=== PATIENT | female | born 1960 | race Caucasian/White ===

== ENCOUNTER → 2019-01-10 | Outpatient (CLI) | payer OTHER ==
--- NOTE | 2019-01-10 14:12 | XR ---
EXAMINATION TYPE: XR foot complete RT DATE OF EXAM: 01/10/2019 CLINICAL HISTORY: pain TECHNIQUE: Frontal, lateral and oblique images of the right foot are obtained. COMPARISON: None. FINDINGS: There is no acute fracture/dislocation evident. The joint spaces appear within normal johnson its. The overlying soft tissue appears unremarkable. IMPRESSION: There is no acute fracture or dislocation. ICD 10 NO FRACTURE, INITIAL EVALUATION
== END | disposition home or self-care (01) ==
LOC: RADXRMAIN 13:09
PROVIDERS: ATTEND Family Medicine
DX: M79.671 Pain in right foot (principal)

== ENCOUNTER → 2019-05-11 | Outpatient (CLI) | payer OTHER ==
--- NOTE | 2019-05-11 14:19 | MR ---
EXAMINATION TYPE: MR shoulder LT wo con DATE OF EXAM: 05/11/2019 COMPARISON: None HISTORY: Left shoulder pain TECHNIQUE: Multiplanar, multisequence imaging of the left shoulder is performed without contrast. FINDINGS: Rotator Cuff: There is a full-thickness tear of the supraspinatus with only a few diminutive fibers r emaining and retraction of the tendon approximately 3.2 cm. Blood products are seen within the acromi ohumeral interval. Mild atrophy is seen of the supraspinatus. Articular surface tear of the infraspinatus is seen measuring 1.0 x 0.8 cm that is partial thickness at the myotendinous junction. Intrasubstance tear measuring 5 mm. Moderate tendinopathy is seen as al teration in signal of the distal insertional fibers. The teres minor is unremarkable in signal and volume. The subscapularis there is undulation of the subscapularis tendon although no discrete tear is seen a xial imaging is limited by patient motion and tear suspected. Acromioclavicular Joint: Moderate acromioclavicular arthropathy is seen with downsloping of the acrom ion creating internal impingement of the myotendinous junction of the supraspinatus. Acromioclavicula r arthropathy is seen as capsular hypertrophy and small marginal ossified. Glenohumeral Joint: Mild joint space narrowing is seen and cephalad displacement of the humeral head related to the rotator cuff tear. Subchondral cysts are also seen of the humeral head. Labrum: There is at least tear of the superior anterior labrum and posterior labrum diffusely with po or visualization of the anterior inferior labrum. Biceps Tendon: The long head of the biceps is located outside of the occipital groove, hit in lesion deep to the subscapularis with heterogeneity at its insertion on the glenoid labrum and split tear no palak. Dislocation is seen as described above with blood products in the bicipital groove and fluid. Bone marrow signal: No focal abnormal marrow signal is appreciated. Other: Small amount of fluid in the subcoracoid bursa. IMPRESSION: 1. Full-thickness tear of the supraspinatus with blood products in the bicipital groove. Mild suprasp inatus atrophy is also seen. 2. Multifocal partial-thickness tears of the infraspinatus measuring 1.0 x 0.8 cm at the articular rollins rface and intrasubstance tear measuring 5 mm. 3. Undulation of the supraspinatus suspicious for tear although the location of tear is not definitiv flor seen given patient motion. The biceps is also dislocated seen deep to the supraspinatus (hidden l esion) with blood products in the bicipital groove. 4. Multifocal tearing of the glenoid labrum as detailed above. 5. Moderate acromio clavicular arthropathy and downsloping of the acromion creating internal impingem ent of the myotendinous junction.
== END | disposition home or self-care (01) ==
LOC: RADMRIMAIN 12:34
PROVIDERS: ATTEND Family Medicine
DX: M75.122 Complete rotator cuff tear or rupture of left shoulder, not specified as traumatic (principal); M12.9 Arthropathy, unspecified

== ENCOUNTER 2020-08-20 13:26 | Emergency (ER) | payer OTHER ==
[2020-08-20 13:59] VITALS: BP 159/108; PULSE 81; RESP 18; TEMP 98.1
--- NOTE | 2020-08-20 14:09 | ED ---
General Adult HPI - General Chief complaint: Extremity Problem,Nontraumatic Stated complaint: L Elbow Pain Time Seen by Provider: 08/20/20 14:02 Source: patient Mode of arrival: ambulatory Limitations: no limitations - History of Present Illness Initial comments: Patient is 60-year-old female presenting to the emergency room with chief complaint of left elbow pain. Patient reports pain started over the last few days. Patient states she bumped it several times throughout the last few days. States she also possibly hated during the night while she was sleeping on the counter next to her bed. She denies any erythema or swelling but states it is quite tender to touch near the olecranon. She reports full range of motion otherwise. Denies any alleviate or aggravate factors. Denies any night sweats residuals. She is not diabetic. She does report taking ibuprofen no significant improvement symptoms. She denies any numbness or tingling. - Related Data Allergies Allergy/AdvReac Type Severity Reaction Status Date / Time amoxicillin Allergy Swelling Verified 08/20/20 13:57 cefaclor [From Ceclor] Allergy Nausea & Verified 08/20/20 13:57 Vomiting & Diarrhea chlorhexidine Allergy Rash/Hives Verified 08/20/20 13:58 latex Allergy Unknown Verified 08/20/20 13:57 nickel Allergy Rash/Hives Verified 08/20/20 13:57 Review of Systems ROS Statement: Those systems with pertinent positive or pertinent negative responses have been documented in the HPI. ROS Other: All systems not noted in ROS Statement are negative. General Exam Limitations: no limitations General appearance: alert, in no apparent distress, obese Head exam: Present: atraumatic, normocephalic, normal inspection Eye exam: Present: normal appearance, PERRL, EOMI Pupils: Present: normal accommodation ENT exam: Present: normal exam, normal oropharynx, mucous membranes moist Neck exam: Present: normal inspection, full ROM. Absent: tenderness Respiratory exam: Present: normal lung sounds bilaterally. Absent: respiratory distress, wheezes, rales Cardiovascular Exam: Present: regular rate, normal rhythm, normal heart sounds Extremities exam: Present: normal inspection (No swelling or erythema at the left elbow), full ROM, tenderness (Tenderness to the olecranon), normal capillary refill, pedal edema, calf tenderness, other (+2 ulnar radial pulses bilaterally.) Back exam: Present: normal inspection, full ROM. Absent: tenderness, CVA tenderness (R), CVA tenderness (L) Neurological exam: Present: alert, oriented X3, CN II-XII intact, normal gait Psychiatric exam: Present: normal affect, normal mood Skin exam: Present: warm, dry, intact, normal color Course Vital Signs 08/20/20 13:54 Temperature 98.1 F Pulse Rate 81 Respiratory 18 Rate Blood Pressure 159/108 O2 Sat by Pulse 99 Oximetry Medical Decision Making - Medical Decision Making Patient is a 60-year-old female presenting to the emergency department with a chief complaint of left elbow pain. On physical examination, patient does not have any swelling or erythema in the region. Some tenderness to the left olecranon. No signs of tenderness or golfer's elbow. Prabhakar wrap was applied. Patient was advised to alternate between Tylenol and Motrin for pain control. Strict return parameters were thoroughly discussed the patient was under sitting ago. Case discussed with physician. Disposition Clinical Impression: Left elbow pain, Injury of left elbow Disposition: HOME SELF-CARE Condition: Stable Instructions (If sedation given, give patient instructions): Elbow Sprain (ED) Additional Instructions: Follow-up with your primary care physician. Alternate between Tylenol and Motrin for pain control. Apply ice compress. Return to emergency department if symptoms worsen. Is patient prescribed a controlled substance at d/c from ED?: No Referrals: George Smith DO [Primary Care Provider] - 1-2 days Time of Disposition: 14:41
--- NOTE | 2020-08-20 14:23 | XR ---
EXAMINATION TYPE: XR elbow complete LT DATE OF EXAM: 08/20/2020 CLINICAL HISTORY: Elbow pain for one day. No injury. TECHNIQUE: Frontal, lateral and oblique images of the left elbow are obtained. COMPARISON: None FINDINGS: There is no acute fracture/dislocation evident in the left elbow. No abnormal fat pad sig ns are seen. The overlying soft tissue appears unremarkable. IMPRESSION: There is no acute fracture or dislocation in the left elbow.
[2020-08-20] MEDS ORDERED: ACET/COD 300 MG/30 MG STARTER PACK 6 TAB BTL PO STA (14:45)
== END 2020-08-20 14:52 | disposition home or self-care (01) ==
LOC: EC 13:26
DX: S59.902A Unspecified injury of left elbow, initial encounter (principal); Z88.0 Allergy status to penicillin; Z88.1 Allergy status to other antibiotic agents; Z91.040 Latex allergy status; Z91.048 Other nonmedicinal substance allergy status; Z88.3 Allergy status to other anti-infective agents; X58.XXXA Exposure to other specified factors, initial encounter
CPT/HCPCS: 99283

== ENCOUNTER 2020-12-19 14:46 | Emergency (ER) | payer OTHER ==
[2020-12-19 14:57] VITALS: RESP 18
[2020-12-19] MEDS ORDERED: LIDOCAINE 1% INJ 10MG/ML (20 ML MDV) SQ ONE (15:18)
--- NOTE | 2020-12-19 15:18 | ED ---
Animal Bite HPI - General Chief Complaint: Animal Bite Stated Complaint: Dog bite Time Seen by Provider: 12/19/20 14:59 Source: patient Mode of arrival: ambulatory Limitations: no limitations - History of Present Illness Initial Comments: 60-year-old female presents to the emergency department with a chief complaint of a dog bite. Patient reports this occurred about one hour prior to arrival. States this was her dog and it is fully vaccinated. States the dog bit her on the right finger and then she pulled it out quickly. Patient reports a lacera tion to the right fourth digit. patient denies any fevers or chills. She reports the pain is an 8 and is throbbing in nature. Her tetanus is up-to-date. She reports full range of motion in the finger but it is painful due to the laceration. - Related Data Previous Rx's Medication Instructions Recorded Doxycycline Monohydrate [Monodox] 100 mg PO Q12HR #20 cap 12/19/20 Doxycycline Monohydrate [Monodox] 100 mg PO Q12HR #20 cap 12/19/20 Fluconazole [Diflucan] 150 mg PO ONCE #2 tab 12/19/20 Sulfamethox-Tmp 800-160Mg [Bactrim 1 each PO Q12HR #20 tab 12/19/20 Ds] Allergies Allergy/AdvReac Type Severity Reaction Status Date / Time amoxicillin Allergy Swelling Verified 08/20/20 13:57 cefaclor [From Ceclor] Allergy Nausea & Verified 08/20/20 13:57 Vomiting & Diarrhea chlorhexidine Allergy Rash/Hives Verified 08/20/20 13:58 latex Allergy Unknown Verified 08/20/20 13:57 nickel Allergy Rash/Hives Verified 08/20/20 13:57 Review of Systems ROS Statement: Those systems with pertinent positive or pertinent negative responses have been documented in the HPI. ROS Other: All systems not noted in ROS Statement are negative. Past Medical History Past Medical History: No Reported History History of Any Multi-Drug Resistant Organisms: None Reported Past Surgical History: No Surgical Hx Reported Smoking Status: Former smoker Past Alcohol Use History: None Reported Past Drug Use History: None Reported General Exam Limitations: no limitations General appearance: alert, in no apparent distress Head exam: Present: atraumatic, normocephalic, normal inspection Eye exam: Present: normal appearance, PERRL, EOMI Pupils: Present: normal accommodation ENT exam: Present: normal exam, normal oropharynx, mucous membranes moist Neck exam: Present: normal inspection, full ROM. Absent: tenderness Respiratory exam: Present: normal lung sounds bilaterally. Absent: respiratory distress Cardiovascular Exam: Present: regular rate, normal rhythm, normal heart sounds Extremities exam: Present: full ROM, tenderness (tenderness at the laceration site), normal capillary refill, other (palpable ulnar and radial pulses bilaterally.). Absent: normal inspection (laceration to her right fourth di git.no signs of foreign body at the laceration site), pedal edema, joint swelling, calf tenderness Back exam: Present: normal inspection, full ROM. Absent: tenderness, CVA te nderness (R), CVA tenderness (L) Neurological exam: Present: alert, oriented X3, normal gait Psychiatric exam: Present: normal affect, normal mood Skin exam: Present: warm, dry, intact, normal color Course Vital Signs 12/19/20 12/19/20 12/19/20 14:55 16:42 17:44 Temperature 98.4 F 98.3 F 98 F Pulse Rate 77 82 64 Respiratory 18 18 18 Rate Blood Pressure 164/109 125/102 166/100 O2 Sat by Pulse 97 98 100 Oximetry Procedures - Laceration Laceration #1 Consent Obtained: verbal consent Indication: laceration Site: other (right fourth digit) Description: flap, irregular, clean Depth: simple, single layer Sedation/Analgesia: none Anesthetic Used: lidocaine 1% Anesthesia Technique: nerve block Amount (mls): 5 Pre-repair: irrigated extensively, deep structures intact Type of Sutures: nylon Size of Sutures: 4-0 Number of Sutures: 5 Technique: simple, interrupted Patient Tolerated Procedure: well, no complications - Nerve Block Consent Obtained: verbal consent Local Anesthetic Used: Lidocaine 1% Amount of anesthesia used: 5 Side: right Nerve Blocks: digital Procedure Successful: Yes Complications: none Patient Tolerated Procedure: well, no complications - Orthopedic Splinting/Casting Injury #1 Side: right Upper Extremity Injury Location: finger Upper Extremity Immobilizer: finger (other) Medical Decision Making - Medical Decision Making 60-year-old male presents emergency Department with chief complaint of a dog bite. On physical examination, the patient has a laceration to the right fourth digit. There is no signs of a foreign body. she is otherwise no neurovascularly intact. X-ray reveals a nondisplaced tuft fracture. There is a possible foreign body in the skin. However, this does not clinically correlate. Laceration site and finger were thoroughly irrigated. Laceration site was loosely close together after a digital block was performed which patient tolerated well. Finger splint applied. She was offered IV antibiotics, she declined. Patient preferred orals. She is ALLERGIC to Augmentin so was started on doxycycline and bactrim instead. she will follow-up with an help desk specialist. Patient was given Norcofor symptomatically relief here bili discharged with Tylenol 3 starter pack and Diflucan because she tends to get vaginal candidiasis secondary to antibiotic. Return parameters discussed the patient was understanding and agreeable. Case discussed with Dr. Weaver. . Disposition Clinical Impression: Dog bite, Bite by animal, Finger fracture Disposition: HOME SELF-CARE Condition: Stable Instructions (If sedation given, give patient instructions): Animal Bite (ED) Additional Instructions: Take medication as directed. Follow-up with help desk specialist. Return to emergency department if symptoms worsen. Prescriptions: Sulfamethox-Tmp 800-160Mg [Bactrim Ds] 1 each PO Q12HR #20 tab Fluconazole [Diflucan] 150 mg PO ONCE #2 tab Doxycycline Monohydrate [Monodox] 100 mg PO Q12HR #20 cap Doxycycline Monohydrate [Monodox] 100 mg PO Q12HR #20 cap Is patient prescribed a controlled substance at d/c from ED?: No Referrals: George Smith DO [Primary Care Provider] - 1-2 days Jean Marie Zuleta DO [Doctor of Osteopathic Medicine] - 1-2 days Time of Disposition: 16:45
[2020-12-19] MEDS ORDERED: HYDROcodone/APAP 5-325MG 1 EACH TAB PO STA (15:21)
--- NOTE | 2020-12-19 15:59 | XR ---
EXAMINATION TYPE: XR finger RT DATE OF EXAM: 12/19/2020 COMPARISON: None HISTORY: Fourth digit laceration from dog bite TECHNIQUE: Ring finger is examined in 3 projections. FINDINGS: Soft tissue injury is at the distal middle phalanx level with diffuse soft tissue prominenc e. Very subtle soft tissue foreign body may be in the dorsal aspect of the injury dorsal portion midd le phalanx level. This is best visualized on the lateral projection right There is a transverse fracture of the distal tuft of the digit. IMPRESSION: 1. Nondisplaced Transverse fracture tuft ring finger right hand. 2. Tiny radiopaque foreign body may be within the soft tissues at the level of the injury of the dist al interphalangeal joint space.
[2020-12-19] MEDS: DOXYCYCLINE 100 MG CAP PO STA ×2 (16:20→16:42)
[2020-12-19] MEDS ORDERED: SULFAMETHOX-TMP 800-160MG 1 EACH TAB PO STA (16:44)
[2020-12-19] MEDS ORDERED: ONDANSETRON 4 MG/2 ML VIAL IM STA (17:20)
[2020-12-19 17:47] VITALS: BP 166/100; PULSE 64; TEMP 98
[2020-12-19] MEDS ORDERED: ACET/COD 300 MG/30 MG STARTER PACK 6 TAB BTL PO STA (17:48)
--- NOTE | 2020-12-20 06:42 | CDI ---
Dear Dr alina goodwin DO, Please do addendum for length of laceration repair for right 4th digit, procedure done , Thank you, Jacoby Bradley, Supply Chain Associate. If you have any questions, please contact Medical Representative at [phone]. mtdD
== END 2020-12-19 17:44 | disposition home or self-care (01) ==
LOC: EC 14:46
DX: S62.664B Nondisplaced fracture of distal phalanx of right ring finger, initial encounter for open fracture (principal); Z88.0 Allergy status to penicillin; Z91.040 Latex allergy status; Z88.1 Allergy status to other antibiotic agents; Z88.8 Allergy status to other drugs, medicaments and biological substances; Z91.048 Other nonmedicinal substance allergy status; Z87.891 Personal history of nicotine dependence; W54.0XXA Bitten by dog, initial encounter
CPT/HCPCS: 12001; 96372; 99283

== ENCOUNTER → 2024-04-08 | Outpatient (CLI) | payer MEDICARE ==
--- NOTE | 2024-04-18 14:57 | CTL ---
EXAMINATION TYPE: CT Low Dose Lung DATE OF EXAM: 04/08/2024 3:37 PM CLINICAL INDICATION:Female, 64 years old with history of Z12.2 encounter SCREEN FOR MALIGNANT NEOPLAS M OF RESP; Current smoker, 2 ppd x 40 years , history of tobacco use. COMPARISON: None. TECHNIQUE: Multiple axial non-contrast scans were obtained from approximately the lung apices through the upper abdomen. Coronal and sagittal reformatted images were obtained. Low dose technique was uti lized. CT DLP: 87.3 mGycm, Automated exposure control for dose reduction was used. CT Contrast: Contrast used: None Oral contrast used: None FINDINGS: ======== Lack of intravenous contrast and low dose technique limits the evaluation of the vascular and soft ti ssue structures. LUNGS: No evidence of pulmonary fibrosis. No evidence of focal consolidation, pneumothorax or pleural effusion. Nodules: RUL: None. RML: None. RLL: None. BRENDA: None. LLL: None. AIRWAY: Patent and unremarkable. HEART: Size within normal limits. MEDIASTINUM: No gross evidence of adenopathy. VASCULATURE: No aortic aneurysm. MUSCULOSKELETAL: No acute osseous abnormalities SOFT TISSUES/LYMPH NODES: Unremarkable. LOWER NECK: No significant findings. UPPER ABDOMEN: No significant findings. IMPRESSION: 1. No clinically significant pulmonary nodules. CT LUNG RAD AND CT CHEST RECOMMENDATION: Lung-Rad 1 Negative: Continue annual screening with LDCT in 12 months. S Modifier (other clinically significant findings): Recommend smoking cessation (if current smoker), or continuation of smoking cessation (if prior smoke r). Annual screening for lung cancer with low-dose computed tomography is recommended in adults ages 55 to 77 years who have a 30 pack-year smoking history and currently smoke or have quit within the pa st 15 years. Screening should be discontinued once a person has not smoked for 15 years or develops a health problem that substantially limits life expectancy or the ability or willingness to have curat lindsey lung surgery. Lung rads 2021 [email or web address]
== END | disposition home or self-care (01) ==
LOC: RADCTMAIN 14:46
PROVIDERS: ATTEND Family Medicine
DX: Z12.2 Encounter for screening for malignant neoplasm of respiratory organs (principal); Z87.891 Personal history of nicotine dependence
CPT/HCPCS: 71271